=== PATIENT | male | born 1965 | race Caucasian/White ===

== ENCOUNTER 2023-05-01 09:46 | Inpatient (IN) | payer MEDICAID ==
[~2023-05-01] VITALS: Ht 162.6 cm; Wt 53.5 kg
[2023-05-01 09:46] VITALS: BP_SYST 128; PULSE 81; RESP 16; TEMP 97.8; O2SAT 95
[2023-05-01 10:44] LABS: BASOPHILS # (AUTO) 0.1 K/uL (0.0-0.2); BASOPHILS % (AUTO) 0.8 % (0.0-2.0); EOSINOPHILS # (AUTO) 0.2 K/uL (0.0-0.4); NEUTROPHILS # (AUTO) 9.7 K/uL (1.8-7.7)
[2023-05-01 10:48] LABS: EOSINOPHILS % (AUTO) 1.9 % (0.0-4.0); LYMPHOCYTES # (AUTO) 0.9 K/uL (1.0-5.5); LYMPHOCYTES % (AUTO) 7.4 % (20.5-51.5); MEAN CORPUSCULAR HEMOGLOBIN 26 pg (27-31); MEAN CORPUSCULAR HGB CONC 31 % (32-36); MEAN CORPUSCULAR VOLUME 85 fL (79.0-98.0); MONOCYTES # (AUTO) 0.7 K/uL (0.0-1.0); MONOCYTES % (AUTO) 6.1 % (1.7-9.3); NEUTROPHILS % (AUTO) 83.8 % (40.0-70.0); PLATELET COUNT (AUTO) 482 K/uL (130-430); RED BLOOD CELL COUNT(AUTO) 2.51 MIL/uL (4.2-6.2); RED CELL DISTRIBUTION WIDTH 18.1 % (9.0-15.0); WHITE BLOOD COUNT (AUTO) 11.5 K/uL (4.8-10.8)
[2023-05-01 10:52] LABS: INR 1.1 (0.80-1.20); PROTHROMBIN TIME 11.3 SECS (9.5-12.5)
[2023-05-01 10:53] LABS: HEMATOCRIT 21.2 % (36-54); HEMOGLOBIN 6.6 g/dL (14.0-18.0)
[2023-05-01 11:04] LABS: CALCIUM 8.9 mg/dL (8.4-11.0); CREATININE 3.78 mg/dL (0.55-1.30); POTASSIUM 3.7 mmol/L (3.5-5.1)
[2023-05-01 11:14] LABS: PHOSPHORUS 4.5 mg/dL (2.7-4.5)
[2023-05-01] MEDS ORDERED: ATOR40TA68 PO (13:24)
[2023-05-01] MEDS ORDERED: SEVE800T8 PO (13:24)
[2023-05-01] MEDS ORDERED: DOCU-156 PO (13:24)
[2023-05-01] MEDS ORDERED: GABA-529 PO (13:24)
[2023-05-01] MEDS ORDERED: ATOR20TA64 PO (13:24)
[2023-05-01] MEDS ORDERED: APIX5TAB PO (13:24)
[2023-05-01] MEDS ORDERED: CHOL200059 PO (13:24)
[2023-05-01] MEDS ORDERED: AMLO10TA88 PO (13:24)
[2023-05-01] MEDS ORDERED: CLOP75TA32 PO (13:24)
[2023-05-01] MEDS ORDERED: APIX2.5T PO (13:27)
[2023-05-01] MEDS ORDERED: INSU100V9 (13:27)
[2023-05-01] MEDS ORDERED: FERR325T30 PO (13:33)
[2023-05-01] MEDS ORDERED: ZINC50TA2 PO (13:33)
[2023-05-01] MEDS ORDERED: HYDR-3919 PO (13:33)
[2023-05-01] MEDS ORDERED: METO-304 PO (13:33)
[2023-05-01] MEDS ORDERED: ACET325C6 PO (13:34)
[2023-05-01] MEDS ORDERED: FAMO-279 PO (13:34)
[2023-05-01 14:43] VITALS: BP_SYST 166; PULSE 99; RESP 18; TEMP 98.7; O2SAT 97
[2023-05-01 15:18] VITALS: BP_SYST 166; PULSE 97; RESP 18; TEMP 98.7; O2SAT 96
[2023-05-01 17:03] VITALS: BP_SYST 164; PULSE 97; RESP 18; TEMP 100.1; O2SAT 100
[2023-05-01 20:00] VITALS: BP_SYST 153; PULSE 91; RESP 17; TEMP 98.1; O2SAT 100
[2023-05-01] MEDS: NACL 0.9% 1,000 ML IV SCH (20:03)
[2023-05-02 00:08] LABS: HEMATOCRIT 33.3 % (36-54); HEMOGLOBIN 10.6 g/dL (14.0-18.0)
[2023-05-02 01:09] VITALS: BP_SYST 127; PULSE 102; RESP 16; TEMP 97.9; O2SAT 99
[2023-05-02 05:29] LABS: BASOPHILS # (AUTO) 0.1 K/uL (0.0-0.2); BASOPHILS % (AUTO) 1.1 % (0.0-2.0); EOSINOPHILS # (AUTO) 0.2 K/uL (0.0-0.4); EOSINOPHILS % (AUTO) 1.2 % (0.0-4.0); HEMOGLOBIN 11.4 g/dL (14.0-18.0); LYMPHOCYTES # (AUTO) 0.9 K/uL (1.0-5.5); LYMPHOCYTES % (AUTO) 6.8 % (20.5-51.5); MEAN CORPUSCULAR HEMOGLOBIN 27 pg (27-31); MEAN CORPUSCULAR HGB CONC 33 % (32-36); MEAN CORPUSCULAR VOLUME 84 fL (79.0-98.0); MONOCYTES # (AUTO) 0.6 K/uL (0.0-1.0); MONOCYTES % (AUTO) 4.6 % (1.7-9.3); NEUTROPHILS # (AUTO) 11.6 K/uL (1.8-7.7); NEUTROPHILS % (AUTO) 86.3 % (40.0-70.0); PLATELET COUNT (AUTO) 520 K/uL (130-430); RED BLOOD CELL COUNT(AUTO) 4.17 MIL/uL (4.2-6.2); RED CELL DISTRIBUTION WIDTH 16.7 % (9.0-15.0); WHITE BLOOD COUNT (AUTO) 13.5 K/uL (4.8-10.8)
[2023-05-02 06:12] LABS: ALBUMIN 1.4 g/dL (3.4-4.8); CALCIUM 9.3 mg/dL (8.4-11.0); CREATININE 4.28 mg/dL (0.55-1.30); PHOSPHORUS 5.3 mg/dL (2.7-4.5); TOTAL BILIRUBIN 0.5 mg/dL (0.0-1.0); TOTAL PROTEIN, SERUM 6.8 g/dL (6.4-8.3)
[2023-05-02 08:00] VITALS: BP_SYST 145; PULSE 70; RESP 16; TEMP 97; O2SAT 97
[2023-05-02 11:32] VITALS: BP_SYST 113; PULSE 107; RESP 16; TEMP 97.2; O2SAT 94
[2023-05-02] MEDS: BALSAM PERU/CASTOR OIL 56.7 GM OINT...G. TP ONE (14:40)
[2023-05-02] MEDS ORDERED: NEPH PO (16:22)
[2023-05-02] MEDS ORDERED: NEU300 PO (16:22)
[2023-05-02] MEDS ORDERED: METO25TA6 PO (16:22)
[2023-05-02] MEDS ORDERED: INSU100V46 SQ (16:22)
[2023-05-02 16:59] VITALS: BP_SYST 116; PULSE 100; RESP 16; TEMP 97.6; O2SAT 94
[2023-05-03 00:15] VITALS: BP_SYST 127; PULSE 107; RESP 16; TEMP 97.9; O2SAT 97
[2023-05-03] MEDS: DEXTROSE 50% JECT 50 ML DISP.SYRIN ONE (05:56)
[2023-05-03 08:00] VITALS: O2SAT 99
[2023-05-03] MEDS: BALSAM PERU/CASTOR OIL 56.7 GM OINT...G. TP SCH (09:00)
[2023-05-03 10:34] LABS: BASOPHILS # (AUTO) 0.1 K/uL (0.0-0.2); BASOPHILS % (AUTO) 0.8 % (0.0-2.0); EOSINOPHILS # (AUTO) 0.1 K/uL (0.0-0.4); EOSINOPHILS % (AUTO) 0.9 % (0.0-4.0); HEMOGLOBIN 10.3 g/dL (14.0-18.0); LYMPHOCYTES # (AUTO) 0.9 K/uL (1.0-5.5); LYMPHOCYTES % (AUTO) 7.7 % (20.5-51.5); MEAN CORPUSCULAR HEMOGLOBIN 27 pg (27-31); MEAN CORPUSCULAR HGB CONC 32 % (32-36); MEAN CORPUSCULAR VOLUME 84 fL (79.0-98.0); MONOCYTES # (AUTO) 0.7 K/uL (0.0-1.0); MONOCYTES % (AUTO) 5.6 % (1.7-9.3); NEUTROPHILS # (AUTO) 10.4 K/uL (1.8-7.7); PLATELET COUNT (AUTO) 459 K/uL (130-430); RED BLOOD CELL COUNT(AUTO) 3.81 MIL/uL (4.2-6.2); RED CELL DISTRIBUTION WIDTH 16.8 % (9.0-15.0); WHITE BLOOD COUNT (AUTO) 12.2 K/uL (4.8-10.8)
[2023-05-03 11:03] LABS: CALCIUM 9.3 mg/dL (8.4-11.0); CREATININE 3.81 mg/dL (0.55-1.30); POTASSIUM 4.4 mmol/L (3.5-5.1)
[2023-05-03 11:13] VITALS: BP_SYST 152; PULSE 101; RESP 17; TEMP 98.9; O2SAT 100
[2023-05-03 15:30] VITALS: BP_SYST 132; PULSE 105; RESP 18; TEMP 99; O2SAT 99
[2023-05-03] MEDS: DEXTROSE 50% JECT 50 ML DISP.SYRIN IVP PRN (18:57)
[2023-05-03 19:00] VITALS: BP_SYST 138; PULSE 109; RESP 18; TEMP 98.8; O2SAT 99
[2023-05-03 20:00] VITALS: BP_SYST 138; PULSE 109; RESP 18; TEMP 98.8; O2SAT 99
[2023-05-03] MEDS: BISACODYL 5 MG TABLET.DR (DULCOLAX) PO ONE (20:47)
[2023-05-03] MEDS: CEFEPIME 1 GM in D5W 50 ML IV SCH (20:47)
[2023-05-04] VITALS (9 sets, daily range): BP systolic 112–161; PULSE 99–111; RESP 16–18; TEMP 97.3–98.4; O2SAT 98–100
[2023-05-04 08:56] LABS: TOTAL IRON BIND. CAPACITY 78 ug/dL (250-450)
[2023-05-04] MEDS: MEPERIDINE 100 MG INJ. 100 MG/ML VIAL ONE (12:28)
[2023-05-04] MEDS: MIDAZOLAM HCL 5 MG/5 ML VIAL ONE (12:28)
[2023-05-04] MEDS: NALOXONE HCL 0.4 MG/ML AMP (NARCAN) ONE (12:42)
[2023-05-04] MEDS: EPOETIN ALFA 4,000 UNITS/ML VIAL SUBCUT ONE (18:49)
[2023-05-04] MEDS: HEPARIN SODIUM,PORCINE 5,000 UNITS/ML VIAL MC ONE (21:30)
[2023-05-04] MEDS ORDERED: HEPARIN SODIUM,PORCINE 5,000 UNITS/ML VIAL SUBCUT SCH (22:00)
[2023-05-05] VITALS (7 sets, daily range): BP systolic 100–152; PULSE 100–112; RESP 17–18; TEMP 98–98.7; O2SAT 96–99
[2023-05-05] MEDS: MORPHINE 2 MG/ML INJ. SYRINGE IVP PRN (02:42)
[2023-05-06 00:13] VITALS: BP_SYST 111; PULSE 107; RESP 18; TEMP 98; O2SAT 100
[2023-05-06 07:11] LABS: CALCIUM 9.3 mg/dL (8.4-11.0); CREATININE 3.89 mg/dL (0.55-1.30); POTASSIUM 4.1 mmol/L (3.5-5.1)
[2023-05-06 07:13] LABS: BASOPHILS # (AUTO) 0.1 K/uL (0.0-0.2); BASOPHILS % (AUTO) 0.6 % (0.0-2.0); EOSINOPHILS # (AUTO) 0.1 K/uL (0.0-0.4); EOSINOPHILS % (AUTO) 1.3 % (0.0-4.0); HEMATOCRIT 29.9 % (36-54); HEMOGLOBIN 9.7 g/dL (14.0-18.0); LYMPHOCYTES # (AUTO) 0.8 K/uL (1.0-5.5); LYMPHOCYTES % (AUTO) 7.4 % (20.5-51.5); MEAN CORPUSCULAR HEMOGLOBIN 28 pg (27-31); MEAN CORPUSCULAR HGB CONC 32 % (32-36); MEAN CORPUSCULAR VOLUME 85 fL (79.0-98.0); MONOCYTES # (AUTO) 0.6 K/uL (0.0-1.0); MONOCYTES % (AUTO) 5.5 % (1.7-9.3); NEUTROPHILS # (AUTO) 8.7 K/uL (1.8-7.7); NEUTROPHILS % (AUTO) 85.2 % (40.0-70.0); PLATELET COUNT (AUTO) 459 K/uL (130-430); RED BLOOD CELL COUNT(AUTO) 3.52 MIL/uL (4.2-6.2); RED CELL DISTRIBUTION WIDTH 16.4 % (9.0-15.0); WHITE BLOOD COUNT (AUTO) 10.2 K/uL (4.8-10.8)
[2023-05-06] MEDS: INSULIN REGULAR, HUMAN 100 UNITS/ML, 3 ML VIAL (humuLIN R) SUBCUT PRN (07:30)
[2023-05-06 08:00] VITALS: BP_SYST 127; PULSE 102; RESP 18; TEMP 97.9; O2SAT 99
[2023-05-06] MEDS: SIMETHICONE 40 MG/0.6 ML ML ONE (09:00)
[2023-05-06] MEDS ORDERED: fentaNYL CITRATE/PF 100 MCG/2 ML AMP ONE (10:20)
[2023-05-06] MEDS ORDERED: MIDAZOLAM HCL/PF 2 MG/2 ML SYRINGE ONE (10:20)
[2023-05-06] MEDS ORDERED: NS IRRIG SOLN 1000 ML IR ONE (10:20)
[2023-05-06] MEDS ORDERED: WATER FOR IRRIGATION,STERILE 1,000 ML IRRIG.SOLN IR ONE (10:20)
[2023-05-06] MEDS ORDERED: ONDANSETRON HCL 4 MG/2 ML VIAL ONE (10:20)
[2023-05-06] MEDS ORDERED: MEPERIDINE HCL/PF 25 MG/ML DISP.SYRIN IVP PRN (11:15)
[2023-05-06] MEDS: NACL 0.9% 1,000 ML IV SCH (11:15)
[2023-05-06] MEDS ORDERED: METOCLOPRAMIDE HCL 10 MG/2 ML VIAL IVP PRN (11:15)
[2023-05-06] MEDS: HYDROmorphone 1 MG/ML INJ. CARTRIDGE ONE (12:09)
[2023-05-06] MEDS: HYDROmorphone 1 MG/ML INJ. CARTRIDGE IVP PRN ×2 (12:14→13:06)
[2023-05-06 13:48] VITALS: BP_SYST 167; PULSE 113; RESP 18; TEMP 97.1; O2SAT 97
[2023-05-06 16:30] VITALS: BP_SYST 136; PULSE 100; RESP 17; TEMP 97.9; O2SAT 94
[2023-05-06] MEDS: EPOETIN ALFA 4,000 UNITS/ML VIAL SUBCUT SCH (17:00)
[2023-05-06 20:00] VITALS: BP_SYST 134; PULSE 68; RESP 18; TEMP 98.2; O2SAT 99
[2023-05-06 20:18] VITALS: O2SAT 98
[2023-05-07] VITALS (7 sets, daily range): BP systolic 100–162; PULSE 87–100; RESP 18–20; TEMP 97.7–98.4; O2SAT 97–99
[2023-05-07] MEDS: HEPARIN SODIUM,PORCINE 5,000 UNITS/ML VIAL SUBCUT ONE (02:49)
[2023-05-07] MEDS: cefTRIAXone 1 GM in D5W 50 ML IV SCH (23:30)
[2023-05-07] MEDS: cefTRIAXone 1 GM VIAL ONE (23:31)
[2023-05-08 00:16] VITALS: BP_SYST 108; PULSE 98; RESP 17; TEMP 98.4; O2SAT 98
[2023-05-08 04:20] VITALS: BP_SYST 131; PULSE 77; RESP 18; TEMP 98.2; O2SAT 98
[2023-05-08 07:08] LABS: BASOPHILS # (AUTO) 0.1 K/uL (0.0-0.2); BASOPHILS % (AUTO) 0.6 % (0.0-2.0); EOSINOPHILS # (AUTO) 0.2 K/uL (0.0-0.4); EOSINOPHILS % (AUTO) 2.6 % (0.0-4.0); HEMATOCRIT 26.7 % (36-54); HEMOGLOBIN 8.6 g/dL (14.0-18.0); LYMPHOCYTES # (AUTO) 0.9 K/uL (1.0-5.5); LYMPHOCYTES % (AUTO) 9.5 % (20.5-51.5); MEAN CORPUSCULAR HEMOGLOBIN 28 pg (27-31); MEAN CORPUSCULAR HGB CONC 32 % (32-36); MEAN CORPUSCULAR VOLUME 85 fL (79.0-98.0); MONOCYTES # (AUTO) 0.6 K/uL (0.0-1.0); MONOCYTES % (AUTO) 6.1 % (1.7-9.3); NEUTROPHILS # (AUTO) 7.6 K/uL (1.8-7.7); NEUTROPHILS % (AUTO) 81.2 % (40.0-70.0); PLATELET COUNT (AUTO) 362 K/uL (130-430); RED BLOOD CELL COUNT(AUTO) 3.14 MIL/uL (4.2-6.2); RED CELL DISTRIBUTION WIDTH 16.4 % (9.0-15.0); WHITE BLOOD COUNT (AUTO) 9.4 K/uL (4.8-10.8)
[2023-05-08 07:29] LABS: ALBUMIN 1.1 g/dL (3.4-4.8); CALCIUM 8.7 mg/dL (8.4-11.0); CREATININE 3.71 mg/dL (0.55-1.30); TOTAL BILIRUBIN 0.2 mg/dL (0.0-1.0); TOTAL PROTEIN, SERUM 5.5 g/dL (6.4-8.3)
[2023-05-08] MEDS: LINEZOLID 600 MG TABLET PO SCH (10:00)
[2023-05-08 11:20] VITALS: BP_SYST 128; PULSE 51; RESP 16; TEMP 98.3; O2SAT 93
[2023-05-08 15:15] VITALS: BP_SYST 121; PULSE 105; RESP 16; TEMP 97.8; O2SAT 99
[2023-05-08 22:32] VITALS: BP_SYST 125; PULSE 107; RESP 18; TEMP 98.7; O2SAT 98
[2023-05-09 00:13] VITALS: BP_SYST 155; PULSE 113; RESP 16; TEMP 97.1; O2SAT 98
[2023-05-09 06:24] LABS: BASOPHILS # (AUTO) 0.1 K/uL (0.0-0.2); BASOPHILS % (AUTO) 0.9 % (0.0-2.0); EOSINOPHILS # (AUTO) 0.3 K/uL (0.0-0.4); EOSINOPHILS % (AUTO) 3.3 % (0.0-4.0); HEMATOCRIT 28.9 % (36-54); HEMOGLOBIN 9.2 g/dL (14.0-18.0); LYMPHOCYTES # (AUTO) 0.8 K/uL (1.0-5.5); LYMPHOCYTES % (AUTO) 8.3 % (20.5-51.5); MEAN CORPUSCULAR HEMOGLOBIN 27 pg (27-31); MEAN CORPUSCULAR HGB CONC 32 % (32-36); MEAN CORPUSCULAR VOLUME 85 fL (79.0-98.0); MONOCYTES # (AUTO) 0.6 K/uL (0.0-1.0); MONOCYTES % (AUTO) 5.7 % (1.7-9.3); NEUTROPHILS # (AUTO) 8.1 K/uL (1.8-7.7); NEUTROPHILS % (AUTO) 81.8 % (40.0-70.0); PLATELET COUNT (AUTO) 374 K/uL (130-430); RED CELL DISTRIBUTION WIDTH 16.4 % (9.0-15.0); WHITE BLOOD COUNT (AUTO) 9.9 K/uL (4.8-10.8)
[2023-05-09 06:55] LABS: CALCIUM 8.7 mg/dL (8.4-11.0); CREATININE 4.68 mg/dL (0.55-1.30); POTASSIUM 4.2 mmol/L (3.5-5.1)
[2023-05-09 08:00] VITALS: BP_SYST 124; PULSE 98; RESP 20; TEMP 98; O2SAT 98
[2023-05-09] MEDS: ALBUMIN HUMAN 25% 100 ML IV ONE ×2 (08:41)
[2023-05-09] MEDS: HEPARIN SODIUM, PORCINE 10,000 UNITS/ 10 ML VIAL MC ONE (10:25)
[2023-05-09] MEDS: HEPARIN SODIUM,PORCINE 5,000 UNITS/ML VIAL MC ONE (10:25)
[2023-05-09 16:00] VITALS: BP_SYST 147; PULSE 99; RESP 18; TEMP 97.7; O2SAT 97
[2023-05-09 19:00] VITALS: BP_SYST 132; PULSE 83; RESP 18; TEMP 97.7; O2SAT 98
[2023-05-09 20:00] VITALS: BP_SYST 130; PULSE 83; RESP 18; TEMP 97.7; O2SAT 99
[2023-05-10] VITALS: BP_SYST 130; PULSE 83; RESP 18; TEMP 97.7; O2SAT 99
[2023-05-10 04:00] VITALS: BP_SYST 100; PULSE 83; RESP 18; TEMP 97.7; O2SAT 99
[2023-05-10 05:53] LABS: BASOPHILS # (AUTO) 0.1 K/uL (0.0-0.2); BASOPHILS % (AUTO) 0.9 % (0.0-2.0); EOSINOPHILS # (AUTO) 0.2 K/uL (0.0-0.4); EOSINOPHILS % (AUTO) 1.9 % (0.0-4.0); HEMATOCRIT 29.2 % (36-54); HEMOGLOBIN 9.2 g/dL (14.0-18.0); MEAN CORPUSCULAR HEMOGLOBIN 27 pg (27-31); MEAN CORPUSCULAR HGB CONC 31 % (32-36); MEAN CORPUSCULAR VOLUME 85 fL (79.0-98.0); MONOCYTES # (AUTO) 0.6 K/uL (0.0-1.0); MONOCYTES % (AUTO) 5.2 % (1.7-9.3); NEUTROPHILS # (AUTO) 9.1 K/uL (1.8-7.7); PLATELET COUNT (AUTO) 342 K/uL (130-430); RED BLOOD CELL COUNT(AUTO) 3.44 MIL/uL (4.2-6.2); RED CELL DISTRIBUTION WIDTH 16.5 % (9.0-15.0); WHITE BLOOD COUNT (AUTO) 10.9 K/uL (4.8-10.8)
[2023-05-10 06:32] LABS: ALBUMIN 1.5 g/dL (3.4-4.8); CALCIUM 9.1 mg/dL (8.4-11.0); CREATININE 3.45 mg/dL (0.55-1.30); PHOSPHORUS 4.6 mg/dL (2.7-4.5); POTASSIUM 4.2 mmol/L (3.5-5.1); TOTAL BILIRUBIN 0.3 mg/dL (0.0-1.0); TOTAL PROTEIN, SERUM 6.2 g/dL (6.4-8.3)
[2023-05-10 08:00] VITALS: O2SAT 99
[2023-05-10 08:59] VITALS: BP_SYST 104; PULSE 105; RESP 18; TEMP 97.6; O2SAT 99
[2023-05-10] MEDS ORDERED: LINE600T12 PO ×2 (10:17→11:42)
[2023-05-10] MEDS ORDERED: AMOX-423 PO (11:42)
[2023-05-10 19:00] VITALS: BP_SYST 132; PULSE 86; RESP 18; TEMP 97.7; O2SAT 99
[2023-05-10 20:00] VITALS: BP_SYST 102; PULSE 86; RESP 18; TEMP 97.7; O2SAT 99
[2023-05-11] VITALS: BP_SYST 111; PULSE 86; RESP 18; TEMP 97.7; O2SAT 99
[2023-05-11 04:00] VITALS: BP_SYST 112; PULSE 84; RESP 18; TEMP 97.7; O2SAT 99
[2023-05-11 08:00] VITALS: BP_SYST 102; PULSE 88; RESP 18; TEMP 97.8; O2SAT 99
[2023-05-11 09:30] VITALS: O2SAT 98
[2023-05-11] MEDS: HEPARIN SODIUM,PORCINE 5,000 UNITS/ML VIAL MC ONE (10:00)
[2023-05-11 11:29] VITALS: BP_SYST 111; PULSE 87; RESP 14; TEMP 97.7; O2SAT 93
[2023-05-11 15:18] VITALS: BP_SYST 127; PULSE 109; RESP 16; TEMP 97.8; O2SAT 100
== END 2023-05-11 20:09 | DRG 305 ==
LOC: SED 09:46 → STU 11:35 → SMU 05-05 23:35
PROVIDERS: ADMIT Internal Medicine; ATTEND Internal Medicine
PROC: 30233N1 Transfusion of Nonautologous Red Blood Cells into Peripheral Vein, Percutaneous Approach (ICD-10-PCS; 2023-05-01)
PROC: 5A1D70Z Performance of Urinary Filtration, Intermittent, Less than 6 Hours Per Day (ICD-10-PCS; 2023-05-01)
PROC: 5A1D70Z Performance of Urinary Filtration, Intermittent, Less than 6 Hours Per Day (ICD-10-PCS; 2023-05-03)
PROC: 0DB68ZX Excision of Stomach, Via Natural or Artificial Opening Endoscopic, Diagnostic (ICD-10-PCS; 2023-05-04)
PROC: 0DBP8ZX Excision of Rectum, Via Natural or Artificial Opening Endoscopic, Diagnostic (ICD-10-PCS; 2023-05-04)
PROC: 0Y6H0Z3 Detachment at Right Lower Leg, Low, Open Approach (ICD-10-PCS; principal; 2023-05-04 10:30)
PROC: 0DB98ZX Excision of Duodenum, Via Natural or Artificial Opening Endoscopic, Diagnostic (ICD-10-PCS; 2023-05-04 10:30)
PROC: 5A1D70Z Performance of Urinary Filtration, Intermittent, Less than 6 Hours Per Day (ICD-10-PCS; 2023-05-05)
PROC: 5A1D70Z Performance of Urinary Filtration, Intermittent, Less than 6 Hours Per Day (ICD-10-PCS; 2023-05-08)
PROC: 5A1D70Z Performance of Urinary Filtration, Intermittent, Less than 6 Hours Per Day (ICD-10-PCS; 2023-05-11)
DX: T87.43 Infection of amputation stump, right lower extremity (principal); R65.11 Systemic inflammatory response syndrome (SIRS) of non-infectious origin with acute organ dysfunction; E43 Unspecified severe protein-calorie malnutrition; E11.52 Type 2 diabetes mellitus with diabetic peripheral angiopathy with gangrene; K29.71 Gastritis, unspecified, with bleeding; N18.6 End stage renal disease; K62.6 Ulcer of anus and rectum; I48.0 Paroxysmal atrial fibrillation; D64.9 Anemia, unspecified; E11.22 Type 2 diabetes mellitus with diabetic chronic kidney disease; I50.42 Chronic combined systolic (congestive) and diastolic (congestive) heart failure; T87.81 Dehiscence of amputation stump; Z85.038 Personal history of other malignant neoplasm of large intestine; I44.7 Left bundle-branch block, unspecified; Z96.653 Presence of artificial knee joint, bilateral; Y83.8 Other surgical procedures as the cause of abnormal reaction of the patient, or of later complication, without mention of misadventure at the time of the procedure; Z99.3 Dependence on wheelchair; Z99.2 Dependence on renal dialysis; Z89.512 Acquired absence of left leg below knee; Z87.891 Personal history of nicotine dependence; Z79.4 Long term (current) use of insulin; Y92.89 Other specified places as the place of occurrence of the external cause; K44.9 Diaphragmatic hernia without obstruction or gangrene; Z89.511 Acquired absence of right leg below knee; K64.8 Other hemorrhoids; Z68.20 Body mass index [BMI] 20.0-20.9, adult
CPT/HCPCS: 36415; 43239; 45378; 71045; 80048; 80053; 82948; 83540; 83550; 83605; 83735; 84100; 85018; 85025; 85610; 85730; 86886; 86900; 86901; 86920; 87040; 87070; 87075; 87081; 87186; 88304; 88305; 88312; 88313; 88341; 88342; 90935; 90937; 93005; 93306; 93923; 97110-GP; 97112-GP; 97530-GP; 99285; G0378; J0692; J0696; J0885; J1170; J1644; J1815; J2175; J2250; J2270; J2310; J2405; J3010; J3465; J7060; P9021